=== PATIENT | female | born 1970 | race Caucasian/White ===

== ENCOUNTER → 2021-11-12 | Day surgery (SDC) | payer BC ==
[~2021-11-12] VITALS: Ht 160 cm; Wt 62.6 kg
[~2021-11-12] MED LIST: BUSPAR 10MG10 MG PO; HYDROCHLOROTHIA25 MG PO; K-TAB ER10 MEQ PO; LEVOTHYROXINE75 MC1 PO; METOPROLOL SUCC25 MG PO; ROXICODONE TAB 55 MG PO
[2021-11-12 07:24] LABS: BUN/CREATININE RATIO 19 (0-10)
== END | disposition home or self-care (01) ==
LOC: OR 05:14
PROVIDERS: Orthopaedic Surgery
DX: S42.032A Displaced fracture of lateral end of left clavicle, initial encounter for closed fracture (principal); I10 Essential (primary) hypertension; E03.9 Hypothyroidism, unspecified; F41.9 Anxiety disorder, unspecified; F17.210 Nicotine dependence, cigarettes, uncomplicated; Z79.899 Other long term (current) drug therapy; Z88.8 Allergy status to other drugs, medicaments and biological substances
CPT/HCPCS: 36415; 73000; 76000; 80048; 84703; C1713; J0592; J0690; J1100; J1170; J1885; J2001; J2250; J2405; J2704; J2710; J2795; J3010